=== PATIENT | female | born 1955 | race Caucasian/White ===

== ENCOUNTER → 2016-09-21 | Outpatient (CLI) | payer MEDICARE, MEDICAID ==
[~2016-09-21] MED LIST: CARV3.125 PO; DUONI INH; ENOX100P SQ; LASI20TA PO; LEVA500T PO; LISI-363 PO; OMEP20TA39 PO; POTA-243 PO; WARF5 PO
[2016-09-21 09:45] LABS: ALKALINE PHOSPHATASE 142 U/L (45-117); ALT (GPT) 18 U/L (10-53); ANION GAP 7 MEQ/L (5-15); AST (GOT) 12 U/L (15-37); BICARBONATE 30.5 MEQ/L (21.0-32.0); BLOOD UREA NITROGEN 27 MG/DL (7-18); CHLORIDE 105 MEQ/L (98-107); GLOMERULAR FILTRATION RATE 49 ML/MIN (>89); GLUCOSE,FASTING 190 MG/DL (74-99); POTASSIUM 4.4 MEQ/L (3.5-5.1); SODIUM (NA) 142 MEQ/L (136-145); TOTAL BILIRUBIN ADULT 0.4 MG/DL (0.2-1.0)
[2016-09-21 10:27] LABS: MICRO ALBUMIN RANDOM URINE RAW 40.5 MG/L (0.0-30.0)
[2016-09-21 16:00] LABS: HEMOGLOBIN A1b 1.2 %; HEMOGLOBIN Ao 82.3 %; HEMOGLOBIN F 1.1 %; HEMOGLOBIN LA1C 2.6 %; HEMOGLOBIN P3 4.5 %
== END ==
LOC: CLAB 08:28
PROVIDERS: ATTEND Family Medicine
DX: E11.21 Type 2 diabetes mellitus with diabetic nephropathy (principal); N18.3 Chronic kidney disease, stage 3 (moderate); I12.9 Hypertensive chronic kidney disease with stage 1 through stage 4 chronic kidney disease, or unspecified chronic kidney disease; R60.9 Edema, unspecified
CPT/HCPCS: 36415; 80053; 82043; 83036

== ENCOUNTER → 2016-12-21 | Outpatient (CLI) | payer MEDICARE, MEDICAID ==
[2016-12-21 09:34] LABS: HEMATOCRIT 44.3 % (35.0-46.0); MEAN CELL VOLUME 89.6 FL (80.0-100.0); MEAN CORPUSCULAR HGB CONC 33.5 % (32.0-36.0); PLATELET COUNT 218 TH/MM3 (150-450); RED BLOOD COUNT 4.94 MIL/MM3 (4.00-5.30); RED CELL DISTRIBUTION WIDTH 14.7 % (11.6-17.2); REVIEW FLAG FINAL; WHITE BLOOD COUNT 8.6 TH/MM3 (4.0-11.0)
[2016-12-21 10:18] LABS: ALKALINE PHOSPHATASE 146 U/L (45-117); ALT (GPT) 25 U/L (10-53); ANION GAP 6 MEQ/L (5-15); AST (GOT) 17 U/L (15-37); BICARBONATE 29.5 MEQ/L (21.0-32.0); BLOOD UREA NITROGEN 20 MG/DL (7-18); CHLORIDE 105 MEQ/L (98-107); GLOMERULAR FILTRATION RATE 46 ML/MIN (>89); GLUCOSE,FASTING 177 MG/DL (74-99); HDL CHOLESTEROL 49.7 MG/DL (40.0-60.0); LDL CHOLESTEROL 65 MG/DL (0-99); POTASSIUM 3.8 MEQ/L (3.5-5.1); SODIUM (NA) 140 MEQ/L (136-145); TOTAL BILIRUBIN ADULT 0.5 MG/DL (0.2-1.0)
[2016-12-21 14:59] LABS: HEMOGLOBIN A1a 1.1 %; HEMOGLOBIN A1b 2.2 %; HEMOGLOBIN Ao 81.9 %; HEMOGLOBIN LA1C 2.4 %; HEMOGLOBIN P3 4.3 %
== END ==
LOC: CLAB 09:10
PROVIDERS: ATTEND Family Medicine
DX: Z00.00 Encounter for general adult medical examination without abnormal findings (principal); Z13.9 Encounter for screening, unspecified; Z13.220 Encounter for screening for lipoid disorders; Z12.11 Encounter for screening for malignant neoplasm of colon; Z13.1 Encounter for screening for diabetes mellitus; E11.42 Type 2 diabetes mellitus with diabetic polyneuropathy; E11.21 Type 2 diabetes mellitus with diabetic nephropathy; N18.3 Chronic kidney disease, stage 3 (moderate); I10 Essential (primary) hypertension; M15.0 Primary generalized (osteo)arthritis; K21.9 Gastro-esophageal reflux disease without esophagitis
CPT/HCPCS: 36415; 80053; 80061; 83036; 83970; 84443; 85027

== ENCOUNTER → 2017-01-23 | Outpatient (CLI) | payer MEDICARE, MEDICAID ==
[2017-01-23 09:14] LABS: AUTOMATED NEUTROPHIL # 5.3 TH/MM3 (1.8-7.7); BASOPHIL # 0.1 TH/MM3 (0-0.2); EOSINOPHIL # 0.2 TH/MM3 (0-0.4); EOSINOPHIL % 2.3 % (0.0-4.0); HEMATOCRIT 44.1 % (35.0-46.0); HEMO FLAGS DIFF FINAL; LYMPH % 27.4 % (9.0-44.0); LYMPHOCYTE # 2.3 TH/MM3 (1.0-4.8); MEAN CELL VOLUME 90.2 FL (80.0-100.0); MEAN CORPUSCULAR HGB CONC 32.2 % (32.0-36.0); MONO % 5.3 % (0.0-8.0); PLATELET COUNT 197 TH/MM3 (150-450); RED BLOOD COUNT 4.89 MIL/MM3 (4.00-5.30); RED CELL DISTRIBUTION WIDTH 15.1 % (11.6-17.2); WHITE BLOOD COUNT 8.3 TH/MM3 (4.0-11.0)
[2017-01-23 11:23] LABS: ALKALINE PHOSPHATASE 144 U/L (45-117); ANION GAP 6 MEQ/L (5-15); AST (GOT) 20 U/L (15-37); BICARBONATE 29.1 MEQ/L (21.0-32.0); BLOOD UREA NITROGEN 24 MG/DL (7-18); CHLORIDE 105 MEQ/L (98-107); GLOMERULAR FILTRATION RATE 57 ML/MIN (>89); GLUCOSE,FASTING 168 MG/DL (74-99); POTASSIUM 4.1 MEQ/L (3.5-5.1); SODIUM (NA) 140 MEQ/L (136-145); TOTAL BILIRUBIN ADULT 0.4 MG/DL (0.2-1.0)
[2017-01-23 11:46] LABS: ALT (GPT) 26 U/L (10-53)
[2017-01-25 03:52] LABS: IGA SERUM 211 mg/dL (81-463); TISSUE TRANSGLUTAMINASE AB IGG ND U/mL (())
[2017-01-25 13:54] LABS: ENDOMYSIAL AB TITER ND (<1:5); TISSUE TRANSGLUTAMINASE AB 3 U/mL (())
== END ==
LOC: CLAB 08:43
DX: R10.11 Right upper quadrant pain (principal)
CPT/HCPCS: 36415; 80053; 82248; 82784; 83516; 85025

== ENCOUNTER → 2017-03-19 | Outpatient (CLI) | payer MEDICARE, OTHER ==
[2017-03-19 10:01] LABS: AST (GOT) 22 U/L (15-37); BLOOD UREA NITROGEN 23 MG/DL (7-18); CHLORIDE 108 MEQ/L (98-107); GLOMERULAR FILTRATION RATE 52 ML/MIN (>89); GLUCOSE,FASTING 133 MG/DL (74-99); SODIUM (NA) 142 MEQ/L (136-145)
[2017-03-19 10:08] LABS: ALKALINE PHOSPHATASE 138 U/L (45-117); ALT (GPT) 26 U/L (10-53); ANION GAP 7 MEQ/L (5-15); BICARBONATE 27.2 MEQ/L (21.0-32.0); HDL CHOLESTEROL 52.7 MG/DL (40.0-60.0); LDL CHOLESTEROL 66 MG/DL (0-99); POTASSIUM 4.1 MEQ/L (3.5-5.1); TOTAL BILIRUBIN ADULT 0.4 MG/DL (0.2-1.0)
[2017-03-19 15:59] LABS: HEMOGLOBIN Ao 83.1 %; HEMOGLOBIN F 1.1 %; HEMOGLOBIN LA1C 2.2 %; HEMOGLOBIN P3 5.7 %
== END ==
LOC: CLAB 08:33
PROVIDERS: ATTEND Family Medicine
DX: R10.11 Right upper quadrant pain (principal); I12.9 Hypertensive chronic kidney disease with stage 1 through stage 4 chronic kidney disease, or unspecified chronic kidney disease; N18.3 Chronic kidney disease, stage 3 (moderate); E11.22 Type 2 diabetes mellitus with diabetic chronic kidney disease; N25.81 Secondary hyperparathyroidism of renal origin; E11.42 Type 2 diabetes mellitus with diabetic polyneuropathy; K21.9 Gastro-esophageal reflux disease without esophagitis; E66.01 Morbid (severe) obesity due to excess calories; Z68.39 Body mass index [BMI] 39.0-39.9, adult; Z86.711 Personal history of pulmonary embolism; Z87.891 Personal history of nicotine dependence
CPT/HCPCS: 36415; 80053; 80061; 83036; 83970

== ENCOUNTER → 2017-06-21 | Outpatient (CLI) | payer MEDICARE, OTHER ==
[2017-06-21 10:15] LABS: ANION GAP 7 MEQ/L (5-15); AST (GOT) 15 U/L (15-37); BICARBONATE 29.2 MEQ/L (21.0-32.0); BLOOD UREA NITROGEN 20 MG/DL (7-18); CHLORIDE 106 MEQ/L (98-107); GLOMERULAR FILTRATION RATE 58 ML/MIN (>89); GLUCOSE,FASTING 136 MG/DL (74-99); POTASSIUM 4.3 MEQ/L (3.5-5.1); SODIUM (NA) 142 MEQ/L (136-145)
[2017-06-21 10:20] LABS: ALKALINE PHOSPHATASE 131 U/L (45-117); ALT (GPT) 22 U/L (10-53); LDL CHOLESTEROL 56 MG/DL (0-99); TOTAL BILIRUBIN ADULT 0.4 MG/DL (0.2-1.0)
== END ==
LOC: CLAB 08:29
PROVIDERS: ATTEND Family Medicine
DX: E11.42 Type 2 diabetes mellitus with diabetic polyneuropathy (principal); E11.22 Type 2 diabetes mellitus with diabetic chronic kidney disease; N18.3 Chronic kidney disease, stage 3 (moderate); N25.81 Secondary hyperparathyroidism of renal origin; I10 Essential (primary) hypertension; M15.0 Primary generalized (osteo)arthritis; K21.9 Gastro-esophageal reflux disease without esophagitis; Z68.39 Body mass index [BMI] 39.0-39.9, adult; E66.01 Morbid (severe) obesity due to excess calories; F33.1 Major depressive disorder, recurrent, moderate; R60.0 Localized edema; H25.13 Age-related nuclear cataract, bilateral; Z86.711 Personal history of pulmonary embolism
CPT/HCPCS: 36415; 80053; 80061; 82306

== ENCOUNTER → 2017-09-23 | Outpatient (CLI) | payer MEDICARE, OTHER ==
[2017-09-23 10:30] LABS: ALBUMIN 3.3 GM/DL (3.4-5.0); ALT (GPT) 22 U/L (10-53); ANION GAP 6 MEQ/L (5-15); AST (GOT) 15 U/L (15-37); BICARBONATE 30.4 MEQ/L (21.0-32.0); CALCIUM 9.2 MG/DL (8.5-10.1); CHLORIDE 106 MEQ/L (98-107); CHOLESTEROL 151 MG/DL (120-200); CREATININE 0.95 MG/DL (0.50-1.00); GLOMERULAR FILTRATION RATE 59 ML/MIN (>89); GLUCOSE,FASTING 120 MG/DL (74-99); POTASSIUM 4.3 MEQ/L (3.5-5.1); SODIUM (NA) 142 MEQ/L (136-145); TRIGLYCERIDES 99 MG/DL (42-150)
[2017-09-23 10:33] LABS: ALKALINE PHOSPHATASE 109 U/L (45-117); BLOOD UREA NITROGEN 20 MG/DL (7-18); HDL CHOLESTEROL 65.5 MG/DL (40.0-60.0); LDL CHOLESTEROL 66 MG/DL (0-99); TOTAL BILIRUBIN ADULT 0.5 MG/DL (0.2-1.0); TOTAL PROTEIN 7.9 GM/DL (6.4-8.2)
[2017-09-23 11:11] LABS: CREATININE RANDOM URINE 87 MG/DL (27-300)
[2017-09-23 11:21] LABS: MICRO ALBUMIN RANDOM URINE RAW 10.8 MG/L (0.0-30.0); MICROALBUMIN/CREAT RATIO RAND 12 MG/G CRE (0-30)
[2017-09-23 16:02] LABS: HEMOGLOBIN A1C 6.5 % (4.3-6.0); HEMOGLOBIN A1b 1.2 %; HEMOGLOBIN F 1.1 %; HEMOGLOBIN P3 3.9 %
== END ==
LOC: CLAB 09:21
DX: I12.9 Hypertensive chronic kidney disease with stage 1 through stage 4 chronic kidney disease, or unspecified chronic kidney disease (principal); N18.3 Chronic kidney disease, stage 3 (moderate); E11.22 Type 2 diabetes mellitus with diabetic chronic kidney disease; E11.42 Type 2 diabetes mellitus with diabetic polyneuropathy; N25.81 Secondary hyperparathyroidism of renal origin; E55.9 Vitamin D deficiency, unspecified; F33.1 Major depressive disorder, recurrent, moderate; K21.9 Gastro-esophageal reflux disease without esophagitis; E66.01 Morbid (severe) obesity due to excess calories; Z68.39 Body mass index [BMI] 39.0-39.9, adult
CPT/HCPCS: 36415; 80053; 80061; 82043; 83036

== ENCOUNTER 2018-02-13 10:05 | Emergency (ER) | payer MEDICAID, MEDICARE ==
[~2018-02-13] VITALS: Ht 167.6 cm; Wt 105.0 kg
[2018-02-13 10:16] VITALS: BP 139/90; PULSE 95; RESP 17; TEMP 98.3; O2SAT 96
[2018-02-13 10:38] VITALS: BP 125/76; PULSE 95; RESP 16; TEMP 98.4; O2SAT 96
--- NOTE | 2018-02-13 10:48 | PD ---
HPI . Rash Chief Complaint: Skin Problem Time Seen by Provider: 10:31 Travel History International Travel<30 days: No Contact w/Intl Traveler<30days: No Traveled to known affect area: No History of Present Illness HPI This patient presents with a painful rash on the right upper back and right breast. Onset was about 3 days ago. It is getting progressively worse. She describes the rash as a painful, burning, itching rash. She rates 10/10. It is slightly relieved by a cool shower. PFSH Past Medical History Diabetes: Yes Hypertension: Yes ?: Not Tubal Ligation: Yes Social History Alcohol Use: No (UNKNOWN) Tobacco Use: No (UNKNOWN) Substance Use: No Allergies-Medications (Allergen,Severity, Reaction): Coded Allergies: No Known Allergies (Verified , 10/01/14) Reported Meds & Prescriptions Reported Meds & Active Scripts Active Shannon (Hydrocodone-Acetaminophen) 5 Mg-325 Mg Tab 1 Tab PO Q4H PRN Famciclovir 500 Mg Tab 500 Mg PO TID 7 Days Coreg 3.125 mg (Carvedilol) 3.125 Mg Tab 3.125 Mg PO Q12 Levaquin 500 Mg Tab (Levofloxacin) 500 Mg Tab 500 Mg PO DAILY 5 Days Coumadin (Warfarin Sod) 5 Mg Tab 5 Mg PO DAILY@16 KEEP INR BETWEEN 2-3, PLEASE CONTINUE LOVENOX UNTIL INR >2.0 Lovenox (Enoxaparin Sodium) 100 Mg/Ml Inj 100 Mg SQ Q12H DISCONTINUE WHEN INR >2.0 Resp: Albuterol/Ipratropium 2.5 Mg/0.5 Mg (Albuterol/Ipratropium) 1 Amp Nebu 1 Amp INH Q2-RT PRN Reported Dicyclomine (Dicyclomine HCl) 10 Mg Cap 10 Mg PO TID PRN Baclofen 10 Mg Tab 10 Mg PO Xarelto (Rivaroxaban) 20 Mg Tab 20 Mg PO DAILY Sertraline (Sertraline HCl) 50 Mg Tab 50 Mg PO DAILY Potassium Chloride ER (Potassium Chloride) 10 Meq Tab 10 Meq PO BID Pantoprazole (Pantoprazole Sodium) 40 Mg Tab 40 Mg PO DAILY Ditropan (Oxybutynin Chloride) 5 Mg Tab 5 Mg PO Q12HR Lyrica (Pregabalin) 50 Mg Cap 50 Mg PO DAILY Lumigan Opth Drops (Bimatoprost) 0.01% Soln 1 Drop EACH EYE HS Invokana (Canagliflozin) 100 Mg Tab 100 Mg PO DAILY Take before 1st meal of day. Glipizide 10 Mg Tab 10 Mg PO BID Take 30 minutes before a meal Furosemide 20 Mg Tab 20 Mg PO DAILY Carvedilol 3.125 Mg Tab 3.125 Mg PO BID Amlodipine (Amlodipine Besylate) 2.5 Mg Tab 2.5 Mg PO DAILY Lasix (Furosemide) 20 Mg Tab 20 Mg PO DAILY 30 Days K-Dur (Potassium Chloride) 10 Meq Tabcr 10 Meq PO BID Lisinopril 20 mg (Lisinopril) 20 Mg Tab 1 Tab PO BID Hm Omeprazole (Omeprazole) 20 Mg Tab 20 Mg PO DAILY Review of Systems Except as stated in HPI: all other systems reviewed are Neg Physical Exam Narrative GENERAL: Awake and alert and in no acute distress. SKIN: Warm and dry. Normal color and turgor. Vesicular rash on an erythematous base in the T 4 dermatome on the right. HEAD: Normocephalic/atraumatic. EYES: Pupils are equal. Extraocular movements are intact. NECK: Normal range of motion. Supple. CARDIOVASCULAR: Regular rate and rhythm. RESPIRATORY: Nonlabored respirations. Normal sats. MUSCULOSKELETAL: Atraumatic. Normal muscle tone. NEUROLOGICAL: A and O 3. Nonfocal. PSYCHIATRIC: Appropriate mood and affect. Data Data Last Documented VS Vital Signs Date Time Temp Pulse Resp B/P (MAP) Pulse Ox O2 Delivery O2 Flow Rate FiO2 02/13/18 10:38 98.4 95 16 125/76 (92) 96 Room Air MDM Medical Decision Making Medical Screen Exam Complete: Yes Emergency Medical Condition: Yes Differential Diagnosis The differential diagnosis of the skin rash includes but is not limited to allergic urticaria, scabies, insect bites, contact dermatitis Narrative Course This patient presents with a painful rash on her right upper back and around to her right breast. Onset was 3 days ago. It is quite painful. On exam, the rash is shingles. She will be discharged with prescriptions for Shannon and Famvir. [id number] has been queried and reviewed. Diagnosis Primary Impression: Shingles Qualified Codes: B02.9 - Zoster without complications Patient Instructions: General Instructions, Shingles (DC) Additional Instructions: See your doctor for recheck in a few days. You are likely to need more medication before the shingles have completely resolved. Med/Other Pt SpecificInfo: Prescription(s) given Scripts Hydrocodone-Acetaminophen (Shannon) 5 Mg-325 Mg Tab 1 TAB PO Q4H Y for PAIN, #12 TAB 0 Refills Prov: Kimberly Lynne MD 02/13/18 Famciclovir (Famciclovir) 500 Mg Tab 500 MG PO TID for Mgmt Viral Infection for 7 Days, TAB 0 Refills Prov: Kimberly Lynne MD 02/13/18 Disposition: 01 DISCHARGE HOME Condition: Stable Kimberly Lynne MD Feb 13, 2018 10:48
[2018-02-13] MEDS ORDERED: POTA10TA2 PO (10:52)
[2018-02-13] MEDS ORDERED: SERT-132 PO (10:52)
[2018-02-13] MEDS ORDERED: AMLO2.5T PO (10:52)
[2018-02-13] MEDS ORDERED: CANA100T PO (10:52)
[2018-02-13] MEDS ORDERED: BACL10TA PO (10:52)
[2018-02-13] MEDS ORDERED: LUMI0.01 EACH EYE (10:52)
[2018-02-13] MEDS ORDERED: CARV3.12 PO (10:52)
[2018-02-13] MEDS ORDERED: LYRI50CA PO (10:52)
[2018-02-13] MEDS ORDERED: FURO20TA PO (10:52)
[2018-02-13] MEDS ORDERED: GLIP10TA6 PO (10:52)
[2018-02-13] MEDS ORDERED: OXYB5TAB8 PO (10:52)
[2018-02-13] MEDS ORDERED: PANT40TA3 PO (10:52)
[2018-02-13] MEDS ORDERED: XARE20TA PO (10:52)
[2018-02-13] MEDS ORDERED: DICY10CA12 PO (10:53)
[2018-02-13] MEDS ORDERED: FAMC500T PO (10:56)
[2018-02-13] MEDS ORDERED: NORC5TAB PO (10:56)
== END 2018-02-13 11:42 | disposition home or self-care (01) ==
LOC: NEPE 10:05
DX: B02.9 Zoster without complications (principal); E11.9 Type 2 diabetes mellitus without complications; I10 Essential (primary) hypertension; Z79.01 Long term (current) use of anticoagulants; Z79.899 Other long term (current) drug therapy
CPT/HCPCS: 99283